=== PATIENT | male | born 1940 | race Caucasian/White ===

== ENCOUNTER → 2022-08-24 | Outpatient (CLI) | payer MEDICARE ==
[2022-08-24 11:42] LABS: ALBUMIN 3.7 GM/DL (3.2-5.2); BILIRUBIN,TOTAL 0.9 MG/DL (0.2-1.0); CALCIUM LEVEL 9.1 MG/DL (8.8-10.2); CREATININE FOR GFR 1.76 MG/DL (0.70-1.30); GLOMERULAR FILTRATION RATE 39.6 (>35); MAGNESIUM LEVEL 2.3 MG/DL (1.8-2.4); POTASSIUM SERUM 4.1 MEQ/L (3.5-5.1); TOTAL PROTEIN 6.8 GM/DL (6.4-8.2)
== END ==
LOC: M LAB 09:59
PROVIDERS: ATTEND Internal Medicine Cardiovascular Disease
DX: E78.2 Mixed hyperlipidemia (principal); I47.20 Ventricular tachycardia, unspecified; I48.91 Unspecified atrial fibrillation; I50.9 Heart failure, unspecified

== ENCOUNTER → 2023-12-30 | Outpatient (REF) | payer MEDICARE ==
[~2023-12-30] MED LIST: ALLO10TA PO; BUME2TAB3 PO; CHOL10007 PO; ELIQ2.5T PO; IRON1TAB2 PO; ISOS1TAB35 PO; MAGN400T2 PO; METO1TAB32 PO; POTA1TAB24 PO; ROSU40TA4 PO
[2023-12-30 18:23] LABS: PERCENT SATURATION 28.7 % (19.7-50.0)
[2023-12-30 18:27] LABS: FERRITIN 42.4 NG/ML (10.5-307.3)
== END ==
LOC: M LAB REF 17:01
PROVIDERS: ATTEND Nurse Practitioner Family
DX: D50.9 Iron deficiency anemia, unspecified (principal)

== ENCOUNTER 2024-01-01 09:19 | Inpatient (IN) | payer MEDICARE ==
[~2024-01-01] VITALS: Ht 167.6 cm; Wt 96.5 kg
[2024-01-01] VITALS (7 sets, daily range): BP systolic 117–159; BP diastolic 53–70; TEMP 96.9–97.9; O2SAT 94–99
[2024-01-01] MEDS ORDERED: MAGN400T2 PO (09:52)
[2024-01-01] MEDS ORDERED: IRON1TAB2 PO (09:52)
[2024-01-01] MEDS ORDERED: POTA1TAB24 PO (09:52)
[2024-01-01] MEDS ORDERED: METO1TAB32 PO (09:52)
[2024-01-01] MEDS ORDERED: BUME2TAB3 PO (09:52)
[2024-01-01] MEDS ORDERED: ELIQ2.5T PO (09:52)
[2024-01-01] MEDS ORDERED: ALLO10TA PO (09:52)
[2024-01-01] MEDS ORDERED: ROSU40TA4 PO (09:52)
[2024-01-01] MEDS ORDERED: ISOS1TAB35 PO (09:52)
[2024-01-01 10:54] LABS: HEMOGLOBIN 8.5 g/dl (13.5-17.5); MEAN CORPUSCULAR HEMOGLOBIN 33.3 pg (27.0-33.0); MEAN CORPUSCULAR HGB CONC 31.5 g/dl (32.0-36.5); MEAN CORPUSCULAR VOLUME 105.9 fl (80.0-96.0); PLATELET COUNT, AUTOMATED 105 10^3/uL (150-450); RED BLOOD COUNT 2.55 10^6/uL (4.30-6.10); WHITE BLOOD COUNT 4.7 10^3/uL (4.0-10.0)
[2024-01-01 11:13] LABS: CALCIUM LEVEL 8.3 MG/DL (8.3-10.6); CREATININE FOR GFR 2.03 MG/DL (0.70-1.30); GLOMERULAR FILTRATION RATE 33.5 (>35); POTASSIUM SERUM 3.9 MMOL/L (3.5-5.1)
[2024-01-01] MEDS ORDERED: MED REC IN PROGRESS XX SCH (13:55)
[2024-01-01] MEDS ORDERED: CHOL10007 PO (14:42)
[2024-01-01] MEDS ORDERED: HOME MED LIST COMPLETE! XX SCH (14:55)
[2024-01-01] MEDS: ASPIRIN 81MG CHEW TABLET PO SCH (16:09)
[2024-01-01] MEDS: PANTOPRAZOLE 40MG VIAL IV ONE (16:10)
[2024-01-01 16:48] LABS: INR 1.56; PARTIAL THROMBOPLASTIN TIME 39.8 SECONDS (24.8-34.2); PROTHROMBIN TIME 18.2 SECONDS (12.5-14.5)
[2024-01-01 17:38] LABS: HEPATITIS B CORE ANTIBODY IGM NEGATIVE (NEGATIVE); HEPATITIS C VIRUS ABY INDEX < 0.02 INDEX (<0.8)
[2024-01-01 20:26] LABS: BASO % 0.6 % (0.0-1.0); EOS # 0.1 10^3/uL (0.0-0.5); EOS % 1.3 % (0.0-3.0); HEMATOCRIT 26.2 % (42.0-52.0); HEMOGLOBIN 8.3 g/dl (13.5-17.5); LYMPH # 0.6 10^3/uL (1.5-5.0); LYMPH % 12.9 % (24.0-44.0); MEAN CORPUSCULAR HEMOGLOBIN 33.5 pg (27.0-33.0); MEAN CORPUSCULAR HGB CONC 31.7 g/dl (32.0-36.5); MEAN CORPUSCULAR VOLUME 105.6 fl (80.0-96.0); MONO # 0.5 10^3/uL (0.0-0.8); MONO % 10.4 % (2.0-8.0); NEUTROPHILS # 3.5 10^3/uL (1.5-8.5); NEUTROPHILS % 74.6 % (36.0-66.0); RED BLOOD COUNT 2.48 10^6/uL (4.30-6.10); WHITE BLOOD COUNT 4.7 10^3/uL (4.0-10.0)
[2024-01-01 20:33] LABS: PLATELET COUNT, AUTOMATED 94 10^3/uL (150-450)
[2024-01-01] MEDS: allopurinoL 100 MG TAB PO SCH (20:38)
[2024-01-01] MEDS: METOPROLOL SUCC *XL* 12.5MG PER 1/2 TAB (TopROL *XL*) PO SCH (20:38)
[2024-01-01] MEDS: PANTOPRAZOLE 40MG VIAL IV SCH (20:38)
[2024-01-02] VITALS (8 sets, daily range): BP systolic 133–166; BP diastolic 59–69; TEMP 96.8–98; O2SAT 92–98
[2024-01-02 05:50] LABS: HEMATOCRIT 30.9 % (42.0-52.0); HEMOGLOBIN 9.9 g/dl (13.5-17.5); MEAN CORPUSCULAR HEMOGLOBIN 33.1 pg (27.0-33.0); MEAN CORPUSCULAR VOLUME 103.3 fl (80.0-96.0); PLATELET COUNT, AUTOMATED 85 10^3/uL (150-450); RED BLOOD COUNT 2.99 10^6/uL (4.30-6.10); WHITE BLOOD COUNT 4.7 10^3/uL (4.0-10.0)
[2024-01-02 05:59] LABS: INR 1.47; PROTHROMBIN TIME 17.4 SECONDS (12.5-14.5)
[2024-01-02 06:06] LABS: ALBUMIN 3.4 G/DL (3.2-5.2); BILIRUBIN,TOTAL 3.3 MG/DL (0.3-1.2); CALCIUM LEVEL 8.3 MG/DL (8.3-10.6); CREATININE FOR GFR 1.97 MG/DL (0.70-1.30); GLOMERULAR FILTRATION RATE 34.7 (>35); MAGNESIUM LEVEL 2.6 MG/DL (1.8-2.4); POTASSIUM SERUM 4.1 MMOL/L (3.5-5.1)
[2024-01-02] MEDS: ROSUVASTATIN 10 MG TAB (CRESTOR) PO SCH (09:00)
[2024-01-02] MEDS: MAGNESIUM OXIDE 400MG TAB (MAG-OX) PO SCH (09:00)
[2024-01-02] MEDS: ISOSORBIDE MON. (IMDUR) 30MG XR TAB PO SCH (09:00)
[2024-01-03 04:03] VITALS: BP 126/82; TEMP 97.2; O2SAT 95
[2024-01-03 05:48] LABS: INR 1.37; PROTHROMBIN TIME 16.4 SECONDS (12.5-14.5)
[2024-01-03 06:03] LABS: ALBUMIN 3.4 G/DL (3.2-5.2); BILIRUBIN,TOTAL 2.1 MG/DL (0.3-1.2); CALCIUM LEVEL 8.4 MG/DL (8.3-10.6); CREATININE FOR GFR 1.83 MG/DL (0.70-1.30); GLOMERULAR FILTRATION RATE 37.7 (>35); MAGNESIUM LEVEL 2.6 MG/DL (1.8-2.4); POTASSIUM SERUM 4.1 MMOL/L (3.5-5.1)
[2024-01-03 06:06] LABS: BASO % 0.6 % (0.0-1.0); EOS # 0.1 10^3/uL (0.0-0.5); EOS % 0.9 % (0.0-3.0); HEMATOCRIT 32.5 % (42.0-52.0); HEMOGLOBIN 10.1 g/dl (13.5-17.5); LYMPH # 0.4 10^3/uL (1.5-5.0); LYMPH % 7.5 % (24.0-44.0); MEAN CORPUSCULAR HEMOGLOBIN 32.7 pg (27.0-33.0); MEAN CORPUSCULAR HGB CONC 31.1 g/dl (32.0-36.5); MEAN CORPUSCULAR VOLUME 105.2 fl (80.0-96.0); MONO # 0.8 10^3/uL (0.0-0.8); MONO % 14.5 % (2.0-8.0); NEUTROPHILS % 76.3 % (36.0-66.0); RED BLOOD COUNT 3.09 10^6/uL (4.30-6.10); WHITE BLOOD COUNT 5.3 10^3/uL (4.0-10.0)
[2024-01-03 06:09] LABS: PLATELET COUNT, AUTOMATED 78 10^3/uL (150-450)
[2024-01-03 08:03] VITALS: BP 147/67; TEMP 97.8; O2SAT 93
[2024-01-03 12:02] VITALS: BP 129/61; TEMP 97.2; O2SAT 94
[2024-01-03] MEDS ORDERED: propofoL 200 MG/20 ML VIAL As Ordered ONE (13:12)
[2024-01-03] MEDS ORDERED: LIDOCAINE 2% 100MG/5ML SDV (FOR ANES.) As Ordered ONE (13:12)
[2024-01-03 16:15] VITALS: BP 142/63; TEMP 97; O2SAT 92
[2024-01-03] MEDS: GOLYTELY SOLN 4000 ML BTL PO ONE (17:27)
[2024-01-03 19:52] VITALS: BP 125/60; TEMP 97; O2SAT 93
[2024-01-03 23:39] VITALS: BP 152/62; TEMP 97.1; O2SAT 92
[2024-01-04] VITALS (9 sets, daily range): BP systolic 107–159; BP diastolic 50–69; TEMP 97.1–98.4; O2SAT 92–98
[2024-01-04 05:36] LABS: BASO % 0.5 % (0.0-1.0); EOS # 0.1 10^3/uL (0.0-0.5); EOS % 1.6 % (0.0-3.0); HEMATOCRIT 31.8 % (42.0-52.0); HEMOGLOBIN 10.2 g/dl (13.5-17.5); LYMPH # 0.5 10^3/uL (1.5-5.0); LYMPH % 13.7 % (24.0-44.0); MEAN CORPUSCULAR HEMOGLOBIN 33.7 pg (27.0-33.0); MEAN CORPUSCULAR HGB CONC 32.1 g/dl (32.0-36.5); MONO # 0.5 10^3/uL (0.0-0.8); MONO % 13.7 % (2.0-8.0); NEUTROPHILS # 2.7 10^3/uL (1.5-8.5); NEUTROPHILS % 70.5 % (36.0-66.0); RED BLOOD COUNT 3.03 10^6/uL (4.30-6.10); WHITE BLOOD COUNT 3.8 10^3/uL (4.0-10.0)
[2024-01-04 05:40] LABS: PLATELET COUNT, AUTOMATED 73 10^3/uL (150-450)
[2024-01-04 06:01] LABS: ALBUMIN 3.5 G/DL (3.2-5.2); BILIRUBIN,TOTAL 2.2 MG/DL (0.3-1.2); CALCIUM LEVEL 8.5 MG/DL (8.3-10.6); CREATININE FOR GFR 1.79 MG/DL (0.70-1.30); GLOMERULAR FILTRATION RATE 38.7 (>35); MAGNESIUM LEVEL 2.6 MG/DL (1.8-2.4); POTASSIUM SERUM 3.9 MMOL/L (3.5-5.1)
[2024-01-04 06:06] LABS: INR 1.41; PROTHROMBIN TIME 16.8 SECONDS (12.5-14.5)
[2024-01-04] MEDS ORDERED: ONDANSETRON 4MG 2ML VIAL As Ordered ONE (15:47)
[2024-01-04] MEDS ORDERED: PHENYLephrine 500MCG 5ML (100MCG/ML) SYRINGE As Ordered ONE (17:18)
[2024-01-04] MEDS ORDERED: fentaNYL 100 MCG/2 ML INJECTION IV PRN (18:00)
[2024-01-04] MEDS ORDERED: ONDANSETRON 4MG 2ML VIAL IV PRN (18:00)
[2024-01-04] MEDS: OMEPRAZOLE 20MG CAP PO SCH (20:33)
[2024-01-04] MEDS: MIRALAX *UNIT DOSE* 17GM PACKET PO SCH (20:33)
[2024-01-05 04:33] VITALS: BP 95/46; TEMP 98.1; O2SAT 93
[2024-01-05 06:07] LABS: BASO % 0.2 % (0.0-1.0); EOS # 0.1 10^3/uL (0.0-0.5); EOS % 1.6 % (0.0-3.0); HEMATOCRIT 29.4 % (42.0-52.0); HEMOGLOBIN 9.5 g/dl (13.5-17.5); LYMPH # 0.5 10^3/uL (1.5-5.0); LYMPH % 11.4 % (24.0-44.0); MEAN CORPUSCULAR HEMOGLOBIN 34.9 pg (27.0-33.0); MEAN CORPUSCULAR HGB CONC 32.3 g/dl (32.0-36.5); MEAN CORPUSCULAR VOLUME 108.1 fl (80.0-96.0); MONO # 0.7 10^3/uL (0.0-0.8); NEUTROPHILS # 3.1 10^3/uL (1.5-8.5); NEUTROPHILS % 70.6 % (36.0-66.0); RED BLOOD COUNT 2.72 10^6/uL (4.30-6.10); WHITE BLOOD COUNT 4.4 10^3/uL (4.0-10.0)
[2024-01-05 06:19] LABS: INR 1.29; PROTHROMBIN TIME 15.7 SECONDS (12.5-14.5)
[2024-01-05 06:20] LABS: PLATELET COUNT, AUTOMATED 68 10^3/uL (150-450)
[2024-01-05 06:22] LABS: ALBUMIN 3.1 G/DL (3.2-5.2); BILIRUBIN,TOTAL 1.5 MG/DL (0.3-1.2); CALCIUM LEVEL 8.1 MG/DL (8.3-10.6); CREATININE FOR GFR 2.3 MG/DL (0.70-1.30); MAGNESIUM LEVEL 2.5 MG/DL (1.8-2.4); POTASSIUM SERUM 4.3 MMOL/L (3.5-5.1); TOTAL PROTEIN 5.7 G/DL (5.7-8.2)
[2024-01-05 07:50] VITALS: BP 121/59; TEMP 98.2; O2SAT 95
[2024-01-05 09:52] VITALS: BP 129/60
[2024-01-05 09:55] VITALS: BP 129/60
[2024-01-05 10:19] LABS: HEMATOCRIT 30.3 % (42.0-52.0); HEMOGLOBIN 9.3 g/dl (13.5-17.5)
[2024-01-05] MEDS ORDERED: OMEP-173 PO ×2 (11:08→16:20)
[2024-01-05 11:50] VITALS: BP 113/57; TEMP 98.1; O2SAT 90
[2024-01-05] MEDS ORDERED: MIRA33506 PO (13:15)
[2024-01-05] MEDS ORDERED: ELIQ2.5T PO (13:15)
[2024-01-05] MEDS ORDERED: BUME2TAB3 PO (13:15)
[2024-01-05 15:16] LABS: HEMATOCRIT 29.3 % (42.0-52.0); HEMOGLOBIN 9.2 g/dl (13.5-17.5)
[2024-01-05 15:50] VITALS: BP 130/58; TEMP 97.7; O2SAT 90
== END 2024-01-05 18:20 | disposition home or self-care (01) | DRG 378 ==
LOC: EDBD 09:19 → M ED 10:40 → M ED INP 15:41 → M PCU 18:20
PROVIDERS: ADMIT Internal Medicine; ATTEND Internal Medicine
PROC: 30233N1 Transfusion of Nonautologous Red Blood Cells into Peripheral Vein, Percutaneous Approach (ICD-10-PCS; principal; 2024-01-01)
PROC: 0DJ08ZZ Inspection of Upper Intestinal Tract, Via Natural or Artificial Opening Endoscopic (ICD-10-PCS; 2024-01-04)
PROC: 0DBK8ZX Excision of Ascending Colon, Via Natural or Artificial Opening Endoscopic, Diagnostic (ICD-10-PCS; 2024-01-04)
PROC: 0DBH8ZX Excision of Cecum, Via Natural or Artificial Opening Endoscopic, Diagnostic (ICD-10-PCS; 2024-01-04)
PROC: 0DBP8ZX Excision of Rectum, Via Natural or Artificial Opening Endoscopic, Diagnostic (ICD-10-PCS; 2024-01-04)
PROC: 0W3P8ZZ Control Bleeding in Gastrointestinal Tract, Via Natural or Artificial Opening Endoscopic (ICD-10-PCS; 2024-01-04)
DX: K62.5 Hemorrhage of anus and rectum (principal); I50.32 Chronic diastolic (congestive) heart failure; N17.9 Acute kidney failure, unspecified; I48.21 Permanent atrial fibrillation; D62 Acute posthemorrhagic anemia; D50.9 Iron deficiency anemia, unspecified; I25.10 Atherosclerotic heart disease of native coronary artery without angina pectoris; Z92.3 Personal history of irradiation; K29.70 Gastritis, unspecified, without bleeding; K44.9 Diaphragmatic hernia without obstruction or gangrene; N18.9 Chronic kidney disease, unspecified; D63.1 Anemia in chronic kidney disease; I27.20 Pulmonary hypertension, unspecified; D69.6 Thrombocytopenia, unspecified; M10.9 Gout, unspecified; Z79.01 Long term (current) use of anticoagulants; Z79.899 Other long term (current) drug therapy; Z88.8 Allergy status to other drugs, medicaments and biological substances; Z91.048 Other nonmedicinal substance allergy status; Z11.52 Encounter for screening for COVID-19; Z95.5 Presence of coronary angioplasty implant and graft; Z95.2 Presence of prosthetic heart valve; Z95.0 Presence of cardiac pacemaker; Z85.46 Personal history of malignant neoplasm of prostate

== ENCOUNTER → 2024-02-08 | Outpatient (CLI) | payer MEDICARE ==
[~2024-02-08] MED LIST changes: +MIRA3350 PO; +MIRA33506 PO; +OMEP-173 PO; +XALA0.007 OU
== END ==
LOC: M LAB 11:00
PROVIDERS: ATTEND Nurse Practitioner Family
DX: D50.9 Iron deficiency anemia, unspecified (principal)

== ENCOUNTER → 2024-02-09 | Outpatient (CLI) | payer MEDICARE ==
[2024-02-09] VITALS (7 sets, daily range): BP systolic 121–181; BP diastolic 58–78; TEMP 96.3–97.1; O2SAT 94–97
[~2024-02-09] MED LIST changes: +NS 250 ML IV ONE
[2024-02-09] MEDS: FUROSEMIDE 40MG/4ML VIAL IV ONE (10:56)
== END ==
LOC: M INFU 08:34
PROVIDERS: ATTEND Nurse Practitioner Family
DX: D50.9 Iron deficiency anemia, unspecified (principal); Z88.8 Allergy status to other drugs, medicaments and biological substances
CPT/HCPCS: 36430; 96374; J1940; P9016

== ENCOUNTER 2024-03-30 10:10 | Emergency (ER) | payer MEDICARE ==
[~2024-03-30] VITALS: Ht 167.6 cm; Wt 86.8 kg
[~2024-03-30 10:10] MED LIST changes: +D 1010002 PO; +EZET10TA21 PO; +FOLI1TAB11 PO; -NS 250 ML IV ONE; -ROSU40TA4 PO; +ROSU40TA63 PO; +SPIR50TA4 PO; +SUCR1TAB56 PO
[2024-03-30 10:56] LABS: VENOUS BASE EXCESS -5.1 (-2.0-2.0); VENOUS HCO3 19.3 MMOL/L (23.0-27.0); VENOUS O2 SATURATION 99.1 % (60.0-80.0); VENOUS PARTIAL PRESSURE CO2 33.1 mmHg (38.0-50.0); VENOUS PARTIAL PRESSURE O2 191.2 mmHg (30.0-50.0); VENOUS PH 7.383 UNITS (7.330-7.430); VENOUS STANDARD HCO3 20.2 MMOL/L; VENOUS TOTAL CO2 20.3 MMOL/L (24.0-28.0)
[2024-03-30 11:06] LABS: BASO % 0.4 % (0.0-1.0); HEMATOCRIT 25.5 % (42.0-52.0); HEMOGLOBIN 7.8 g/dl (13.5-17.5); LYMPH # 0.2 10^3/uL (1.5-5.0); MEAN CORPUSCULAR HEMOGLOBIN 29.2 pg (27.0-33.0); MEAN CORPUSCULAR HGB CONC 30.6 g/dl (32.0-36.5); MEAN CORPUSCULAR VOLUME 95.5 fl (80.0-96.0); MONO # 0.5 10^3/uL (0.0-0.8); MONO % 9.3 % (2.0-8.0); NEUTROPHILS # 4.2 10^3/uL (1.5-8.5); NEUTROPHILS % 85.5 % (36.0-66.0); RED BLOOD COUNT 2.67 10^6/uL (4.30-6.10)
[2024-03-30 11:11] LABS: PLATELET COUNT, AUTOMATED 82 10^3/uL (150-450)
[2024-03-30 11:22] LABS: INR 2.02; PROTHROMBIN TIME 22.1 SECONDS (12.5-14.5)
[2024-03-30 11:26] LABS: CK-MB VALUE MASS < 1.0 NG/ML (<3.6)
[2024-03-30 11:28] LABS: CPK CREATINE PHOSPHOKINASE 51 U/L (46-171); MB/CK RELATIVE INDEX 1.96 (< OR =4)
[2024-03-30 11:31] LABS: BLOOD UREA NITROGEN 73 MG/DL (9-23); CALCIUM LEVEL 8.2 MG/DL (8.3-10.6); CARBON DIOXIDE LEVEL 20 MMOL/L (20-31); CHLORIDE LEVEL 107 MMOL/L (98-107); CREATININE FOR GFR 3.31 MG/DL (0.70-1.30); GLUCOSE, FASTING 115 MG/DL (74-106); POTASSIUM SERUM 4.2 MMOL/L (3.5-5.1); SODIUM LEVEL 138 MMOL/L (136-145)
[2024-03-30 13:15] LABS: ALBUMIN 2.9 G/DL (3.2-5.2); ALKALINE PHOSPHATASE 62 U/L (46-116); ALT/SGPT 17 U/L (7.0-40); AST/SGOT 22 U/L (<34); BILIRUBIN,DIRECT 0.4 MG/DL (<0.4); BILIRUBIN,TOTAL 0.9 MG/DL (0.3-1.2); TOTAL PROTEIN 5.5 G/DL (5.7-8.2)
[2024-03-30] MEDS: FUROSEMIDE 40MG/4ML VIAL IV ONE (13:46)
[2024-03-30] MEDS: PANTOPRAZOLE 40MG VIAL IV ONE (13:46)
[2024-03-30 13:48] VITALS: BP 117/57; TEMP 97.8; O2SAT 96
[2024-03-30 14:02] VITALS: BP 123/58; TEMP 97.9; O2SAT 93
[2024-03-30 14:17] VITALS: BP 123/58; TEMP 97.8; O2SAT 100
[2024-03-30 14:32] VITALS: BP 123/58; TEMP 98.5; O2SAT 99
[2024-03-30 15:29] VITALS: BP 130/67; TEMP 98.5
[2024-03-30 16:38] VITALS: BP 135/63; TEMP 98.2; O2SAT 98
== END 2024-03-30 16:45 | disposition short-term general hospital (02) ==
LOC: M ED 10:10
DX: K92.2 Gastrointestinal hemorrhage, unspecified (principal); N18.9 Chronic kidney disease, unspecified; R55 Syncope and collapse; I48.91 Unspecified atrial fibrillation; I50.9 Heart failure, unspecified; J44.9 Chronic obstructive pulmonary disease, unspecified; Z79.01 Long term (current) use of anticoagulants; Z79.899 Other long term (current) drug therapy; Z88.8 Allergy status to other drugs, medicaments and biological substances; Z91.89 Other specified personal risk factors, not elsewhere classified